=== PATIENT | male | born 1970 | race Caucasian/White ===

== ENCOUNTER 2016-10-28 02:38 | Emergency (ER) | payer MEDICAID ==
[2016-10-28] MEDS ORDERED: ACETAMINOPHEN/CODEINE 300 MG/30 MG TABLET PO STA (04:03)
[2016-10-28] MEDS ORDERED: CLINDAMYCIN 150 MG CAPSULE PO STA (04:03)
[2016-10-28] MEDS ORDERED: CLINDAMYCIN 150 MG CAPSULE PO ONE (04:09)
[2016-10-28] MEDS ORDERED: ACETAMINOPHEN/CODEINE 300 MG/30 MG TABLET PO ONE (04:09)
== END 2016-10-28 04:26 | disposition home or self-care (01) ==
DX: K04.7 Periapical abscess without sinus (principal); F17.200 Nicotine dependence, unspecified, uncomplicated
CPT/HCPCS: 99283; A9270

== ENCOUNTER 2016-11-03 13:29 | Emergency (ER) | payer MEDICAID | END 2016-11-03 14:07 | disposition home or self-care (01) | DX: K04.7 Periapical abscess without sinus (principal); I10 Essential (primary) hypertension; F17.200 Nicotine dependence, unspecified, uncomplicated ==

== ENCOUNTER 2017-07-23 15:59 | Outpatient (CLI) | payer MEDICAID ==
--- NOTE | 2017-07-24 17:09 | MRI Report ---
EXAM: MRI BRAIN WITHOUT CONTRAST EXAM DATE: 07/23/2017 05:03 PM. CLINICAL HISTORY: Memory loss, seizure disorder. COMPARISON: None. TECHNIQUE: Multiplanar, multisequence T1-weighted and fluid-sensitive MR sequences of the brain were performed. Sequences optimized for routine evaluation. Other: None. IV Contrast: None. FINDINGS: The diffusion-weighted images are normal. There is no evidence of acute or subacute cerebral infarcti on. The pituitary and sella are normal. The corpus callosum is of normal size and configuration. The in house cra niocervical junction is normal. The images are degraded by motion. The cerebral vascular flow voids are patent. The T2 axial FLAIR images are normal. There is a subtle punctate focus of suggested susceptibility in the left kaden. This may potentially be artifactual. Otherwise it could reflect a small focus of old blood products from prior microhemorrhage versus a capillary telangiectasia. This cannot be further d ifferentiated on this exam. The optic nerves demonstrate symmetric signal intensity and size. The bilateral hippocampal heads, tia dy, and tail are of symmetric signal intensity and size. The internal architecture is distinct. The c olumns of the fornix are symmetric. The amygdala are symmetric. The bilateral parotid spaces exhibit normal signal intensity. Cerebral volume and ventricular size are normal. IMPRESSION: 1. The images are degraded by motion. Given this limitation, there is no large area of acute or subac [place] cerebral infarction demonstrated. 2. There is no evidence of mesial temporal sclerosis. 3. There is no significant white matter disease. 4. There is no evidence of brain mass. 5. There is a punctate focus of subtle susceptibility suggested in the left kaden on the T2* sequence. It may be artifactual or potentially represent a small focus of old blood products from prior microh emorrhage from trauma versus a capillary telangiectasia. Referring Provider Line: [phone] SITE ID: [id number]
== END 2017-07-23 16:00 | disposition home or self-care (01) ==
LOC: DI 15:59
PROVIDERS: ATTEND Physician Assistant Medical
DX: R41.3 Other amnesia (principal); R56.9 Unspecified convulsions
CPT/HCPCS: 70551

== ENCOUNTER 2017-09-03 12:54 | Outpatient (CLI) | payer MEDICAID | END 2017-09-03 12:55 | disposition home or self-care (01) | LOC: DI 12:54 | PROVIDERS: ATTEND Physician Assistant Medical | DX: R00.0 Tachycardia, unspecified (principal); Z82.49 Family history of ischemic heart disease and other diseases of the circulatory system | CPT/HCPCS: 36415; 80053; 83735; 84443; 84484; 85025; 85379; 93306 ==

== ENCOUNTER 2017-09-03 13:45 | Outpatient (CLI) | payer MEDICAID ==
[2017-09-03 14:02] LABS: BASOPHILS # (AUTO) 0.1 10^3/uL (0.0-0.1); BASOPHILS % (AUTO) 0.9 %; EOSINOPHILS # (AUTO) 0.4 10^3/uL (0.0-0.7); EOSINOPHILS % (AUTO) 5.1 %; HGB - HEMOGLOBIN 14.7 g/dL (14.0-18.0); LYMPHOCYTES # (AUTO) 2.6 10^3/uL (1.5-3.5); MEAN CORPUSCULAR HGB CONC 33.2 g/dL (32.0-36.0); MEAN CORPUSCULAR VOLUME 90.4 fL (80.0-94.0); MEAN PLATELET VOLUME 7.5 fL (7.4-11.4); MONOCYTES # (AUTO) 0.7 10^3/uL (0.0-1.0); MONOCYTES % (AUTO) 9.1 %; NEUTROPHILS # (AUTO) 4.1 10^3/uL (1.5-6.6); NEUTROPHILS % (AUTO) 51.9 %; PLT - PLATELET COUNT 258 10^3/uL (130-450); RED BLOOD COUNT 4.89 10^6/uL (4.70-6.10); RED CELL DISTRIBUTION WIDTH 13.9 % (12.0-15.0); WHITE BLOOD COUNT 7.9 x10^3/uL (4.8-10.8)
[2017-09-03 14:21] LABS: ALBUMIN 4.2 g/dL (3.2-5.5); ALBUMIN/GLOBULIN RATIO 1.5 (1.0-2.2); ALKALINE PHOSPHATASE 51 IU/L (42-121); ALT ALANINE AMINOTRANSFERASE 15 IU/L (10-60); AST ASPARTATE AMINOTRANSFERASE 16 IU/L (10-42); BILIRUBIN,TOTAL 0.5 mg/dL (0.2-1.0); BUN - BLOOD UREA NITROGEN 13 mg/dL (6-20); CARBON DIOXIDE - CO2 27 mmol/L (21-32); CHLORIDE 103 mmol/L (101-111); GFR - MDRD 80 (>89); GLUCOSE 93 mg/dL (70-100); MAGNESIUM 2.2 mg/dL (1.7-2.8); SODIUM 139 mmol/L (135-145)
== END 2017-09-03 13:46 | disposition home or self-care (01) ==
LOC: LAB 13:45
PROVIDERS: ATTEND Physician Assistant Medical
DX: R00.0 Tachycardia, unspecified (principal); Z82.49 Family history of ischemic heart disease and other diseases of the circulatory system
CPT/HCPCS: 36415; 80053; 83735; 84443; 84484; 85025; 85379

== ENCOUNTER 2017-10-04 13:25 | Emergency (ER) | payer MEDICAID ==
[2017-10-04 13:35] VITALS: BP 115/76
[2017-10-04] MEDS ORDERED: BENZOCAINE SPRAY MM STA (13:48)
[2017-10-04] MEDS ORDERED: LIDOCAINE 1%-EPI 1:100000 20 ML MDV SUBQ STA (13:48)
--- NOTE | 2017-10-04 13:50 | ED Physician Documentation ---
PD HPI HEENT - Stated complaint Stated Complaint: SINUS PAIN, SWELLING - Chief complaint Chief Complaint: Heent - History obtained from History obtained from: Patient - History of Present Illness Timing - onset: Other (He developed facial swelling and pain 3 days ago, he started taking amoxicillin 2 days ago and it has not gotten better in fact it has gotten worse. There is no associated fever. He does have nasal congestion. ) Review of Systems Constitutional: denies: Fever, Chills Nose: reports: Rhinorrhea / runny nose, Congestion Throat: denies: Sore throat Cardiac: denies: Chest pain / pressure, Palpitations PD PAST MEDICAL HISTORY - Past Medical History Cardiovascular: None Respiratory: None Neuro: Seizure disorder Endocrine/Autoimmune: None GI: None : None HEENT: None Psych: Anxiety Musculoskeletal: None Derm: None - Past Surgical History Past Surgical History: No - Present Medications Home Medications: Ambulatory Orders Medication Instructions Recorded Confirmed Escitalopram [Lexapro] 10 mg PO DAILY 03/13/15 11/03/16 Acetaminophen/Cod 300/30 [Tylenol 1 - 2 each PO Q6HR PRN #20 tablet 10/28/16 #3] Clindamycin HCl [Clindamycin 300MG 300 mg PO Q6HR #39 capsule 10/28/16 11/03/16 CAP] Clindamycin [Cleocin] 300 mg PO Q6H 10 Days capsule 10/04/17 HYDROmorphone [Dilaudid] 2 mg PO Q4-6H PRN #15 tablet 10/04/17 Ibuprofen [Motrin] 800 mg PO Q8H PRN #30 tablet 10/04/17 - Allergies Allergies/Adverse Reactions: Allergies Allergy/AdvReac Type Severity Reaction Status Date / Time acetaminophen [From Percocet] AdvReac seizure Verified 10/28/16 02:48 hydrocodone AdvReac seizure Verified 10/28/16 02:47 oxycodone HCl * AdvReac seizure Verified 10/28/16 02:48 [From Percocet] - Social History Does the pt smoke?: Yes Smoking Status: Current every day smoker Does the pt drink ETOH?: Yes Does the pt have substance abuse?: No - Immunizations Immunizations are current?: Yes PD ED PE NORMAL - Vitals Vital signs reviewed: Yes - General General: Alert and oriented X 3, No acute distress - HEENT HEENT: Other (There is a large pointed abscess on the upper gingiva near the second premolar with some tenderness and reactive facial swelling over that. No trismus.) - Neck Neck: Supple, no meningeal sign, No bony TTP - Neuro Neuro: Alert and oriented X 3, Normal speech Results - Vitals Vitals: Vital Signs - 24 hr 10/04/17 13:33 Temperature 36.6 C Heart Rate 73 Respiratory 18 Rate Blood Pressure 115/76 O2 Saturation 99 Oxygen O2 Source Room air Procedures - Abscess I&D (location) Dental, L maxillary Preparation: Other (Topical benzocaine followed by infraorbital nerve block with lido with epi, intraoral approach.) Incision: Incised with scalpel, Purulent drainage, Loculations broken Other: Pt tolerated well, Antibiotic prescribed Departure - Departure Disposition: 01 Home, Self Care Clinical Impression: Dental infection Condition: Good Record reviewed to determine appropriate education?: Yes Instructions: ED Tooth Pain Prescriptions: Clindamycin [Cleocin] 300 mg PO Q6H 10 Days capsule HYDROmorphone [Dilaudid] 2 mg PO Q4-6H PRN #15 tablet PRN Reason: Pain Ibuprofen [Motrin] 800 mg PO Q8H PRN #30 tablet PRN Reason: PAIN &/OR FEVER Comments: It is very important that she follow-up with a dentist. When it comes to dental problems like yours, the emergency department can only offer a short- term solution to your long-term problem. A couple of low cost options for dental care include: [facility] in [place], calls [phone] for an appointment Or [facility] [facility] in [place], call [phone] for an appointment. Or [facility] in [place] [phone]
== END 2017-10-04 14:29 | disposition home or self-care (01) ==
LOC: ED 13:25
DX: K04.7 Periapical abscess without sinus (principal); F17.200 Nicotine dependence, unspecified, uncomplicated
CPT/HCPCS: 41800; 99283; A9270

== ENCOUNTER 2018-08-27 10:57 | Emergency (ER) | payer MEDICAID ==
[2018-08-27] MEDS ORDERED: DEXAMETHASONE 10 MG/ML VIAL PO STA (13:43)
--- NOTE | 2018-08-27 13:46 | ED Physician Documentation ---
PD HPI BACK PAIN - Stated complaint Stated Complaint: LOWER BACK PAIN - Chief complaint Chief Complaint: Back Pain - History obtained from History obtained from: Patient - History of Present Illness Timing - onset: How many days ago (3) Timing - duration: Days (3) Timing - details: Gradual onset, Still present Location: Lower, Right, Left Quality: Pain, Spasm, Sharp, Similar to prior episodes Associated symptoms: No: Fever, Weakness, Numbness, Incontinent of urine, Unable to urinate, Hematuria, Incontinent of stool Improves with: Rest, Position Worsened by: Movement, Twisting, Palpation Similar symptoms before: Diagnosis (lumbar strain and UTI) Recently seen: Not recently seen - Additional information Additional information: 47-year-old male has developed pain in his lower back that radiates down his left leg to the knee. He denies any fever or nausea denies any urinary urgency frequency or dysuria. He did have some foul-smelling urine last week he drank extra fluids that resolved. Review of Systems Constitutional: denies: Fever, Chills, Myalgias, Fatigue Eyes: denies: Decreased vision Ears: denies: Ear pain Nose: denies: Congestion Throat: denies: Sore throat Cardiac: denies: Chest pain / pressure Respiratory: denies: Dyspnea, Cough GI: denies: Abdominal Pain, Nausea, Vomiting, Constipation, Diarrhea : denies: Dysuria, Frequency Skin: denies: Rash Musculoskeletal: reports: Back pain, Extremity pain. denies: Neck pain Neurologic: denies: Generalized weakness, Focal weakness, Numbness PD PAST MEDICAL HISTORY - Past Medical History Cardiovascular: None Respiratory: None Endocrine/Autoimmune: None GI: None : None HEENT: None Psych: Anxiety Musculoskeletal: None Derm: None - Past Surgical History Past Surgical History: No - Present Medications Home Medications: Ambulatory Orders Medication Instructions Recorded Confirmed Quetiapine Fumarate [Quetiapine 75 mg PO DAILY 08/27/18 08/27/18 Fumarate ER] tiZANidine [Zanaflex] 4 mg PO Q8H PRN #20 tablet 08/27/18 traMADol [Ultram] 50 - 100 mg PO Q6H PRN #20 tablet 08/27/18 - Allergies Allergies/Adverse Reactions: Allergies Allergy/AdvReac Type Severity Reaction Status Date / Time acetaminophen [From Percocet] AdvReac seizure Verified 08/27/18 11:02 hydrocodone AdvReac seizure Verified 08/27/18 11:02 oxycodone HCl * AdvReac seizure Verified 08/27/18 11:02 [From Percocet] - Social History Does the pt smoke?: Yes Smoking Status: Current every day smoker Does the pt drink ETOH?: Yes Does the pt have substance abuse?: No - Immunizations Immunizations are current?: Yes PD ED PE NORMAL - Vitals Vital signs reviewed: Yes (hypertensive ) - General General: Alert and oriented X 3, No acute distress, Well developed/nourished - HEENT HEENT: Atraumatic, PERRL, EOMI - Respiratory Respiratory: No respiratory distress - Back Back: No CVA TTP, No spinal TTP, Other (There is paraspinous muscle tenderness to the lower lumbar paraspinous muscles and not the the CVA. The pain extends into the sciatic notch on the left side. ) - Derm Derm: Normal color, Warm and dry, No rash - Extremities Extremities: No deformity, No edema - Neuro Neuro: Alert and oriented X 3, last code striper 2-12 intact, No motor deficit, No sensory deficit, Normal speech Eye Opening: Spontaneous Motor: Obeys Commands Verbal: Oriented GCS Score: 15 - Psych Psych: Normal mood, Normal affect Results - Vitals Vitals: Vital Signs - 24 hr 08/27/18 11:00 Temperature 36.8 C Heart Rate 90 Respiratory 18 Rate Blood Pressure 146/93 H O2 Saturation 100 Oxygen O2 Source Room air PD MEDICAL DECISION MAKING - ED course Complexity details: reviewed old records, considered differential, d/w patient ED course: 47-year-old male has lower lumbar pain radiating to the left sciatic notch and down the left leg. He is administered dexamethasone 10 mg orally and will place him on some pain medication and muscle relaxant. He has had problems previously with hydrocodone and oxycodone but does state that he cannot tolerate tramadol. Departure - Departure Disposition: 01 Home, Self Care Clinical Impression: Sciatica Qualifiers: Laterality: left Qualified Code(s): M54.32 - Sciatica, left side Condition: Stable Instructions: ED Sciatica Follow-Up: [facility] [Provider Group] Prescriptions: tiZANidine [Zanaflex] 4 mg PO Q8H PRN #20 tablet PRN Reason: back spasm traMADol [Ultram] 50 - 100 mg PO Q6H PRN #20 tablet PRN Reason: Pain
[2018-08-27 13:59] VITALS: BP 146/90
== END 2018-08-27 13:58 | disposition home or self-care (01) ==
LOC: ED 10:57
DX: M54.32 Sciatica, left side (principal); F17.200 Nicotine dependence, unspecified, uncomplicated
CPT/HCPCS: 99283

== ENCOUNTER 2018-09-15 10:46 | Emergency (ER) | payer MEDICAID ==
--- NOTE | 2018-09-15 13:29 | ED Physician Documentation ---
History of Present Illness - Stated complaint Stated Complaint: GLF/HEAD INJURY - Chief complaint Chief Complaint: General - History obtained from History obtained from: Patient - History of Present Illness Timing: Yesterday (He slipped and fell yesterday hitting the back of his head on rocks. There was no loss of consciousness. He had a gradual onset global headache overnight associated with right hand pain and tingling. No loss of consciousness, no vomiting.) Review of Systems Constitutional: denies: Fever, Chills Eyes: denies: Loss of vision, Decreased vision Ears: denies: Loss of hearing, Ear pain Nose: denies: Rhinorrhea / runny nose, Congestion PD PAST MEDICAL HISTORY - Past Medical History Cardiovascular: None Respiratory: None Endocrine/Autoimmune: None GI: None : None HEENT: None Psych: Anxiety Musculoskeletal: None Derm: None - Past Surgical History Past Surgical History: No - Present Medications Home Medications: Ambulatory Orders Medication Instructions Recorded Confirmed Quetiapine Fumarate [Quetiapine 75 mg PO DAILY 08/27/18 08/27/18 Fumarate ER] tiZANidine [Zanaflex] 4 mg PO Q8H PRN #20 tablet 08/27/18 traMADol [Ultram] 50 - 100 mg PO Q6H PRN #20 tablet 08/27/18 oxyCODONE [Roxicodone] 5 mg PO Q4-6H PRN #10 tablet 09/15/18 - Allergies Allergies/Adverse Reactions: Allergies Allergy/AdvReac Type Severity Reaction Status Date / Time aspirin Allergy Unknown Verified 09/15/18 11:18 acetaminophen [From Percocet] AdvReac seizure Verified 09/15/18 11:18 hydrocodone AdvReac seizure Verified 09/15/18 11:18 oxycodone HCl * AdvReac seizure Verified 09/15/18 11:18 [From Percocet] - Social History Does the pt smoke?: Yes Smoking Status: Current every day smoker Does the pt drink ETOH?: Yes Does the pt have substance abuse?: No - Immunizations Immunizations are current?: Yes - POLST Patient has POLST: No PD ED PE NORMAL - Vitals Vital signs reviewed: Yes - General General: Alert and oriented X 3, No acute distress - HEENT HEENT: PERRL, EOMI - Neck Neck: Supple, no meningeal sign, Other (Mild diffuse cervical spine tenderness) - Derm Derm: Normal color, Warm and dry, No rash - Extremities Extremities: No edema, No calf tenderness / cord, Other (Mild tenderness of the right fifth metacarpal without deformity or limited range of motion. He has normal bilateral claims correspondence clerk strength, thumb extension, and interosseous strength. He has mildly diminished/tingling sensation in a right C6 distribution.) - Neuro Neuro: Alert and oriented X 3, Normal speech - Psych Psych: Normal mood, Normal affect Results - Vitals Vitals: Vital Signs - 24 hr 09/15/18 09/15/18 09/15/18 11:13 12:54 13:25 Temperature 36.8 C 36.9 C Heart Rate 99 81 90 Respiratory 16 18 14 Rate Blood Pressure 129/86 H 116/83 H 130/86 H O2 Saturation 100 100 100 Oxygen O2 Source Room air - Rads (name of study) CT Head/Cspine, and XR R hand Radiology: EMP read contemporaneously (NAD, DDD in the C spine) PD MEDICAL DECISION MAKING - ED course ED course: 47-year-old gentleman status post head injury yesterday with headache and right arm tingling today. The right arm tingling seems most like a cervical radiculopathy, the findings are pretty mild and he has no C-spine tenderness. Imaging shows no severe injuries. He has full range of motion of the neck. Conservative care was advised. He requested tramadol for pain. He has a history of epilepsy and I did not think that was a good choice. We settled on plain oxycodone, it sounds like the listed allergy to Percocet was from the acetaminophen. Departure - Departure Disposition: 01 Home, Self Care Clinical Impression: Head injury Qualifiers: Encounter type: initial encounter Qualified Code(s): S09.90XA - Unspecified injury of head, initial encounter Neck sprain Qualifiers: Encounter type: initial encounter Qualified Code(s): S13.9XXA - Sprain of joints and ligaments of unspecified parts of neck, initial encounter Contusion, hand Qualifiers: Encounter type: initial encounter Laterality: right Qualified Code(s): S60.221A - Contusion of right hand, initial encounter Condition: Good Record reviewed to determine appropriate education?: Yes Instructions: ED Head Injury Closed Prescriptions: oxyCODONE [Roxicodone] 5 mg PO Q4-6H PRN #10 tablet PRN Reason: Pain Comments: Call your doctor to arrange a follow-up appointment, make the next available appointment. In the interim, return anytime if worse or if new symptoms develop. Do not drink or drive while taking narcotic pain medication. Note that many narcotic pain relievers also contain Tylenol/acetaminophen. Please ensure that your total dose of acetaminophen from all sources does not exceed 3 g (3000 mg) per day. You may get constipated while on this medication. Take a stool softener such as Colace twice a day while you are on it. Also add an itah-pho-nueeywr laxative such as senna or MiraLAX on any day that you do not have a bowel movement. If you received a narcotic pain medication or sedative while in the emergency department, do not drive for the next 24 hours. Your blood pressure was elevated today on check into the emergency department. This does not mean that you have hypertension, it is a common phenomenon to come to the emergency department and have elevated blood pressure. I recommend that you see your primary care physician within the week to have it rechecked when you are feeling better.
[2018-09-15 13:30] VITALS: BP 130/86
--- NOTE | 2018-09-15 14:05 | XRAY Report ---
Reason: head inj, R hand pain/numb Procedure Date: 09/15/2018 Accession Number: [id number] / [id number] Procedure: XR - Hand 3 View RT CPT Code: FULL RESULT: EXAM: RIGHT HAND RADIOGRAPHY EXAM DATE: 09/15/2018 01:54 PM. CLINICAL HISTORY: Head inj, R hand pain/numb. COMPARISON: HAND 3 VIEW LT 03/13/2015 4:23 AM. TECHNIQUE: 3 views. FINDINGS: Bones: Normal. No fractures or bone lesions. Joints: Normal. No subluxations. Soft Tissues: Unremarkable. IMPRESSION: Normal hand radiography. RADIA
--- NOTE | 2018-09-15 14:06 | CT Report ---
Reason: head inj, R hand pain/numb Procedure Date: 09/15/2018 Accession Number: [id number] / [id number] Procedure: CT - CERVICAL SPINE WO CPT Code: FULL RESULT: EXAM: CT CERVICAL SPINE WITHOUT CONTRAST DATE: 09/15/2018 01:39 PM. HISTORY: Head inj, R hand pain/numb. COMPARISONS: None. TECHNIQUE: Thin-section axial images were acquired of the cervical spine without contrast. Post-processing: Coronal and sagittal reformats. Other: None. In accordance with CT protocol optimization, one or more of the following dose reduction techniques were utilized for this exam: automated exposure control, adjustment of mA and/or KV based on patient size, or use of iterative reconstructive technique. FINDINGS: Alignment: No scoliosis or spondylolisthesis. Bones: No fracture or bone lesion. Interspace Levels/Facets: C1-C2: Unremarkable. C2-C3: Unremarkable. C3-C4: Unremarkable. C4-C5: Unremarkable. C5-C6: Osteophyte C6-C7: Osteophyte, uncovertebral osteophyte C7-T1: Unremarkable. Musculature: Normal. No fatty atrophy. Other: The paravertebral and prevertebral soft tissues are unremarkable. Biapical scarring IMPRESSION: Mild DJD RADIA
--- NOTE | 2018-09-15 14:07 | CT Report ---
Reason: head inj, R hand pain/numb Procedure Date: 09/15/2018 Accession Number: [id number] / [id number] Procedure: CT - HEAD WO CPT Code: FULL RESULT: EXAM: CT HEAD EXAM DATE: 09/15/2018 01:39 PM. CLINICAL HISTORY: Trauma, pain. COMPARISON: BRAIN W/O 07/23/2017 4:11 PM. TECHNIQUE: Multiaxial CT images were obtained from the foramen magnum to the vertex. Reformats: Sagittal and coronal. IV contrast: None. In accordance with CT protocol optimization, one or more of the following dose reduction techniques were utilized for this exam: automated exposure control, adjustment of mA and/or KV based on patient size, or use of iterative reconstructive technique. FINDINGS: Parenchyma: No intraparenchymal hemorrhage. No evidence of mass, midline shift, or CT findings of infarction. Lyons-white differentiation is distinct. Extraaxial Spaces: Normal for age. No subdural or epidural collections. Ventricles: Normal in size and position. Sinuses and Orbits: Imaged paranasal sinuses, orbits, and mastoids show no significant abnormality. Bones: Unremarkable. Other: None. IMPRESSION: Normal head CT. RADIA
== END 2018-09-15 14:24 | disposition home or self-care (01) ==
LOC: ED 10:46
DX: S09.90XA Unspecified injury of head, initial encounter (principal); S13.9XXA Sprain of joints and ligaments of unspecified parts of neck, initial encounter; S60.221A Contusion of right hand, initial encounter; W01.198A Fall on same level from slipping, tripping and stumbling with subsequent striking against other object, initial encounter; R03.0 Elevated blood-pressure reading, without diagnosis of hypertension; F17.200 Nicotine dependence, unspecified, uncomplicated
CPT/HCPCS: 70450; 72125; 99283

== ENCOUNTER 2019-04-13 10:41 | Outpatient (CLI) | payer MEDICAID ==
--- NOTE | 2019-04-13 13:41 | XRAY Report ---
Reason: CERVICAL SPINAL STENOSIS, HAND NUMBNESS Procedure Date: 04/13/2019 Accession Number: [id number] / [id number] Procedure: XRN - Cervical Spine 2 View CPT Code: FULL RESULT: EXAM: CERVICAL SPINE RADIOGRAPHY EXAM DATE: 04/13/2019 10:54 AM. CLINICAL HISTORY: CERVICAL SPINAL STENOSIS, HAND NUMBNESS. COMPARISONS: CT cervical spine 09/15/2018. TECHNIQUE: 3 views. FINDINGS: Alignment: Normal lordosis. No spondylolisthesis or scoliosis. Bones: The cervical vertebral bodies and posterior elements are well visualized from the skull base through C7-T1. No fractures or bone lesions. Disks: No significant disk height narrowing or subluxation. There are small anterior inferior bone spurs of C4, C5, and C6, without disk height narrowing. Facets: No visible facet arthropathy. Soft Tissues: Normal. No prevertebral soft tissue swelling. The visualized lung apices are clear. IMPRESSION: 1. Mild multilevel anterior spondylosis without disk height narrowing. 2. Otherwise negative examination. RADIA
== END 2019-04-13 10:42 | disposition home or self-care (01) ==
LOC: DI.N 10:41
PROVIDERS: ATTEND Nurse Practitioner
DX: M47.812 Spondylosis without myelopathy or radiculopathy, cervical region (principal)
CPT/HCPCS: 72040

== ENCOUNTER 2019-06-22 12:26 | Emergency (ER) | payer MEDICAID ==
[2019-06-22 12:32] VITALS: BP 148/93
--- NOTE | 2019-06-22 12:56 | ED Physician Documentation ---
PD HPI URI - Stated complaint Stated Complaint: SOA - Chief complaint Chief Complaint: Resp - History obtained from History obtained from: Patient - History of Present Illness Timing - onset: Other (Sick for a week with a biphasic illness with a cough productive of yellow sputum, some shortness of breath especially at night. There is no fever. He denies sore throat. He was getting better but got worse again yesterday. He has trouble taking a deep breath. There is no chest pain. No pedal edema. No recent travel.) Review of Systems Constitutional: reports: Fatigue. denies: Fever, Chills Nose: denies: Rhinorrhea / runny nose Throat: denies: Sore throat Cardiac: denies: Chest pain / pressure Respiratory: reports: Dyspnea, Cough PD PAST MEDICAL HISTORY - Past Medical History Cardiovascular: None Respiratory: None Endocrine/Autoimmune: None GI: None : None HEENT: None Psych: Anxiety Musculoskeletal: None Derm: None - Past Surgical History Past Surgical History: No - Present Medications Home Medications: Ambulatory Orders Medication Instructions Recorded Confirmed Quetiapine Fumarate [Quetiapine 75 mg PO DAILY 08/27/18 08/27/18 Fumarate ER] tiZANidine [Zanaflex] 4 mg PO Q8H PRN #20 tablet 08/27/18 traMADol [Ultram] 50 - 100 mg PO Q6H PRN #20 tablet 08/27/18 oxyCODONE [Roxicodone] 5 mg PO Q4-6H PRN #10 tablet 09/15/18 Albuterol Sulf [Ventolin Hfa 1 - 2 puffs INH Q4HR PRN #1 inhaler 06/22/19 Inhaler] Azithromycin [Zithromax] 1 tab PO DAILY #6 tablet 06/22/19 Benzonatate [Tessalon Perle] 100 - 200 mg PO TID PRN #30 capsule 06/22/19 - Allergies Allergies/Adverse Reactions: Allergies Allergy/AdvReac Type Severity Reaction Status Date / Time aspirin Allergy Unknown Verified 09/15/18 11:18 acetaminophen [From Percocet] AdvReac seizure Verified 09/15/18 11:18 hydrocodone AdvReac seizure Verified 09/15/18 11:18 oxycodone HCl * AdvReac seizure Verified 09/15/18 11:18 [From Percocet] - Social History Does the pt smoke?: Yes Smoking Status: Current every day smoker Does the pt drink ETOH?: Yes Does the pt have substance abuse?: No - Immunizations Immunizations are current?: Yes - POLST Patient has POLST: No PD ED PE NORMAL - Vitals Vital signs reviewed: Yes - General General: Alert and oriented X 3, No acute distress - HEENT HEENT: PERRL, EOMI - Neck Neck: Supple, no meningeal sign, No bony TTP - Cardiac Cardiac: RRR, No murmur - Respiratory Respiratory: Other (Mildly rhonchorous throughout without focal findings, no obvious respiratory distress.) - Abdomen Abdomen: Non tender - Back Back: No CVA TTP, No spinal TTP - Derm Derm: Normal color, Warm and dry - Neuro Neuro: Alert and oriented X 3, Normal speech Results - Vitals Vitals: Vital Signs - 24 hr 06/22/19 12:28 Temperature 36.5 C Heart Rate 80 Respiratory 18 Rate Blood Pressure 148/93 H O2 Saturation 96 Oxygen O2 Source Room air PD MEDICAL DECISION MAKING - ED course ED course: 48-year-old gentleman with ongoing tobacco use presents with a biphasic illness, may have early COPD and is treated for same, steroids are held given underlying psychiatric disorder. Departure - Departure Disposition: 01 Home, Self Care Clinical Impression: Bronchitis Condition: Good Record reviewed to determine appropriate education?: Yes Instructions: ED Bronchitis Asthmatic Prescriptions: Albuterol Sulf [Ventolin Hfa Inhaler] 1 - 2 puffs INH Q4HR PRN #1 inhaler PRN Reason: Shortness Of Air/Wheezing Azithromycin [Zithromax] 1 tab PO DAILY #6 tablet Benzonatate [Tessalon Perle] 100 - 200 mg PO TID PRN #30 capsule PRN Reason: Cough Comments: Return for new or worsening symptoms. Follow-up with your doctor in a week if not better. Discharge Date/Time: 06/22/19 12:58
== END 2019-06-22 12:58 | disposition home or self-care (01) ==
LOC: ED 12:26
DX: J40 Bronchitis, not specified as acute or chronic (principal); F17.200 Nicotine dependence, unspecified, uncomplicated
CPT/HCPCS: 99283; 99284

== ENCOUNTER 2019-07-24 14:45 | Outpatient (CLI) | payer MEDICAID ==
[2019-07-24 15:05] LABS: BASOPHILS # (AUTO) 0.1 10^3/uL (0.0-0.1); BASOPHILS % (AUTO) 0.8 %; EOSINOPHILS # (AUTO) 0.2 10^3/uL (0.0-0.7); EOSINOPHILS % (AUTO) 3.3 %; HGB - HEMOGLOBIN 14.8 g/dL (14.0-18.0); LYMPHOCYTES # (AUTO) 2.2 10^3/uL (1.5-3.5); LYMPHOCYTES % (AUTO) 35.4 %; MEAN CORPUSCULAR HEMOGLOBIN 30.4 pg (27.0-31.0); MEAN CORPUSCULAR HGB CONC 32.6 g/dL (32.0-36.0); MEAN CORPUSCULAR VOLUME 93.2 fL (80.0-94.0); MEAN PLATELET VOLUME 9.3 fL (7.4-11.4); MONOCYTES # (AUTO) 0.6 10^3/uL (0.0-1.0); MONOCYTES % (AUTO) 9.5 %; NEUTROPHILS # (AUTO) 3.2 10^3/uL (1.5-6.6); NEUTROPHILS % (AUTO) 50.5 %; PLT - PLATELET COUNT 244 10^3/uL (130-450); RED BLOOD COUNT 4.87 10^6/uL (4.70-6.10); RED CELL DISTRIBUTION WIDTH 13.3 % (12.0-15.0); WHITE BLOOD COUNT 6.3 x10^3/uL (4.8-10.8)
[2019-07-24 15:15] LABS: ALBUMIN 4.6 g/dL (3.2-5.5); ALBUMIN/GLOBULIN RATIO 1.6 (1.0-2.2); BILIRUBIN,TOTAL 0.6 mg/dL (0.2-1.0); CALCIUM 9.2 mg/dL (8.5-10.3); CREATININE 0.9 mg/dL (0.6-1.2); MAGNESIUM 2.1 mg/dL (1.7-2.8); TOTAL PROTEIN 7.4 g/dL (6.7-8.2)
== END 2019-07-24 14:46 | disposition home or self-care (01) ==
LOC: LAB 14:45
PROVIDERS: ATTEND Nurse Practitioner
DX: Z79.899 Other long term (current) drug therapy (principal); G25.81 Restless legs syndrome
CPT/HCPCS: 36415; 80053; 83735; 84153; 85025

== ENCOUNTER 2020-03-24 09:42 | Outpatient (CLI) | payer MEDICAID ==
--- NOTE | 2020-03-24 15:42 | MRI Report ---
PROCEDURE: Lumbar Spine W/O INDICATIONS: LUMBAGO W/SCIATICA RT SIDE TECHNIQUE: Noncontrast sagittal T1 spin echo and T2 fast echo, sagittal STIR, axial T1 and T2 fast spin echo thr ough the lumbar spine. In cases with scoliosis, additional coronal T2 fast spin echo may be performe d. COMPARISON: None. FINDINGS: Image quality: Excellent. Alignment and Curvature: There is normal bony alignment. Bone Marrow: Marrow is of normal overall signal. No acute vertebral body compression fractures. Spinal Cord: Conus medullaris terminates at the normal level. Visualized cord demonstrates normal s ignal and size. Regional Soft Tissues: Prevertebral and paraspinous soft tissues are within normal limits. T12-L1: Normal in appearance. L1-L2: Normal in appearance. L2-L3: Normal in appearance. L3-L4: Normal in appearance. L4-L5: Disc desiccation and disc height loss with diffuse disc bulge flattening the ventral thecal sac. No mass effect upon the traversing L5 nerve roots. Foraminal components of the disc bulge combin ed with facet hypertrophy to produce mild bilateral neural foraminal stenosis. L5-S1: Disc desiccation and disc height loss with circumferential disc bulge and a superimposed bro ad-based posterior disc protrusion. Disc material does not displace the descending S1 nerve roots wit hin either subarticular zone. Foraminal components of the disc bulge combined with facet hypertrophy and neural foraminal height loss to produce moderate bilateral neural foraminal stenosis. Disc mater ial abuts the exiting L5 nerve roots bilaterally. IMPRESSION: Degenerative changes at L4-L5 and L5-S1. Correlate for any corresponding radicular symptoms. Reviewed by: Celso Yanes MD on 03/24/2020 3:41 PM PDT Approved by: Celso Yanes MD on 03/24/2020 3:41 PM PDT Station ID: [id number]
== END 2020-03-24 09:43 | disposition home or self-care (01) ==
LOC: DI 09:42
PROVIDERS: ATTEND Nurse Practitioner
DX: M51.36 Other intervertebral disc degeneration, lumbar region (principal); M48.061 Spinal stenosis, lumbar region without neurogenic claudication; M51.37 Other intervertebral disc degeneration, lumbosacral region; M48.07 Spinal stenosis, lumbosacral region; M51.27 Other intervertebral disc displacement, lumbosacral region
CPT/HCPCS: 72148

== ENCOUNTER 2020-03-25 20:29 | Emergency (ER) | payer MEDICAID ==
[2020-03-25] MEDS ORDERED: oxyCODONE 5 MG TABLET PO STA (21:13)
[2020-03-25] MEDS ORDERED: CLINDAMYCIN 150 MG CAPSULE PO STA (21:13)
--- NOTE | 2020-03-25 21:18 | ED Physician Documentation ---
PD HPI HEENT - Stated complaint Stated Complaint: TOOTH & HIP PX - Chief complaint Chief Complaint: Heent - History obtained from History obtained from: Patient - Additional information Additional information: Right Sided tooth pain and swelling of the face. No fevers. Is been going on for about a week. Also notes sciatica and had an MRI done yesterday. Review of Systems Constitutional: denies: Fever, Chills Cardiac: reports: Reviewed and negative Respiratory: reports: Reviewed and negative PD PAST MEDICAL HISTORY - Past Medical History Past Medical History: Yes Cardiovascular: None Respiratory: None Neuro: Seizure disorder Endocrine/Autoimmune: None GI: None : None HEENT: None Psych: Anxiety Musculoskeletal: None Derm: None - Past Surgical History Past Surgical History: No - Present Medications Home Medications: Ambulatory Orders Medication Instructions Recorded Confirmed Quetiapine Fumarate [Quetiapine 75 mg PO DAILY 08/27/18 08/27/18 Fumarate ER] tiZANidine [Zanaflex] 4 mg PO Q8H PRN #20 tablet 08/27/18 traMADol [Ultram] 50 - 100 mg PO Q6H PRN #20 tablet 08/27/18 oxyCODONE [Roxicodone] 5 mg PO Q4-6H PRN #10 tablet 09/15/18 Albuterol Sulf [Ventolin Hfa 1 - 2 puffs INH Q4HR PRN #1 inhaler 06/22/19 Inhaler] Azithromycin [Zithromax] 1 tab PO DAILY #6 tablet 06/22/19 Benzonatate [Tessalon Perle] 100 - 200 mg PO TID PRN #30 capsule 06/22/19 Penicillin V Potassium 500 mg PO Q6HR #40 tablet 02/15/20 Tramadol HCl 50 - 100 mg PO Q6H PRN #20 tablet 02/15/20 Clindamycin HCl [Clindamycin 300MG 300 mg PO Q6H #40 capsule 03/25/20 CAP] Morphine Ir [Ms Ir] 15 mg PO Q6H PRN #15 tablet 03/25/20 - Allergies Allergies/Adverse Reactions: Allergies Allergy/AdvReac Type Severity Reaction Status Date / Time aspirin Allergy Unknown Verified 02/15/20 10:45 acetaminophen [From Percocet] AdvReac seizure Verified 02/15/20 10:45 hydrocodone AdvReac seizure Verified 02/15/20 10:45 oxycodone HCl * AdvReac seizure Verified 02/15/20 10:45 [From Percocet] - Social History Does the pt smoke?: Yes Smoking Status: Current every day smoker Does the pt drink ETOH?: Yes ETOH Use: Wine Does the pt have substance abuse?: No - Immunizations Immunizations are current?: Yes - POLST Patient has POLST: No PD ED PE NORMAL - Vitals Vital signs reviewed: Yes - General General: Alert and oriented X 3, No acute distress - HEENT HEENT: Other (Generally poor dentition, mild amount of trismus, large cavities with reactive gingival swelling on the gumline posterior right. No sublingual edema or elevation of the tongue.) - Neck Neck: Supple, no meningeal sign, No bony TTP - Extremities Extremities: No deformity, No tenderness to palpate, Normal ROM s pain, No edema - Neuro Neuro: Alert and oriented X 3, No motor deficit, No sensory deficit, Normal speech Results - Vitals Vitals: Vital Signs - 24 hr 03/25/20 03/25/20 20:30 21:42 Temperature 36.8 C 37.3 C Heart Rate 96 80 Respiratory 16 18 Rate Blood Pressure 153/108 H 165/116 H O2 Saturation 97 98 Oxygen O2 Source Room air Procedures - General procedure General procedure: After an inferior alveolar block with actually pretty good anesthesia a stab incision was made in the most fluctuant portion of the gumline without return of pus. PD MEDICAL DECISION MAKING - ED course ED course: 49-year-old gentleman presents with pain from sciatica, MRI from yesterday was reviewed. Also a dental abscess with facial cellulitis but no current evidence of Doni's angina. A stab incision was made in the gumline, no pus was Returned. He was administered oxycodone here. Later he noted an allergy to same and was thusly given a prescription for morphine which he says he can take. Departure - Departure Disposition: 01 Home, Self Care Clinical Impression: Pain due to dental caries, Dental infection Sciatica Qualifiers: Laterality: right Qualified Code(s): M54.31 - Sciatica, right side Condition: Good Record reviewed to determine appropriate education?: Yes Instructions: Prone Multifidus Activation, ED Dental Abscess Facial Cellulitis, ED Sciatica Prescriptions: Clindamycin HCl [Clindamycin 300MG CAP] 300 mg PO Q6H #40 capsule Morphine Ir [Ms Ir] 15 mg PO Q6H PRN #15 tablet PRN Reason: Pain Comments: Come back if worse. Otherwise to follow-up with your dentist on Saturday. Also your primary care physician to discuss physical therapy. Discharge Date/Time: 03/25/20 21:43
[2020-03-25 21:43] VITALS: BP 165/116
== END 2020-03-25 21:43 | disposition home or self-care (01) ==
LOC: ED 20:29
DX: K04.7 Periapical abscess without sinus (principal); K02.9 Dental caries, unspecified; M54.31 Sciatica, right side; F17.200 Nicotine dependence, unspecified, uncomplicated
CPT/HCPCS: 41800; 99282; 99284; A9270

== ENCOUNTER 2020-09-21 06:44 | Emergency (ER) | payer MEDICAID ==
[2020-09-21 06:56] VITALS: BP 167/113
--- NOTE | 2020-09-21 08:03 | ED Physician Documentation ---
PD HPI HEENT - Stated complaint Stated Complaint: TOOTH PX - Chief complaint Chief Complaint: Heent - History obtained from History obtained from: Patient - History of Present Illness Timing - onset: How many days ago (3-4) Timing - duration: Days (3-4) Timing - details: Gradual onset, Still present Location: Tooth (right lower molar) Worsens: Temperatures, Other (chewing and palpation) Associated symptoms: No: Fever, Congestion, Cough Similar symptoms before: Diagnosis (dental infections) Recently seen: Not recently seen (tried to get appt but not for couple weeks.) Review of Systems Constitutional: denies: Fever, Chills Nose: denies: Rhinorrhea / runny nose, Congestion Throat: denies: Sore throat Respiratory: denies: Cough GI: denies: Nausea, Vomiting Skin: denies: Rash, Lesions PD PAST MEDICAL HISTORY - Past Medical History Past Medical History: Yes Cardiovascular: None Respiratory: None Neuro: Seizure disorder Endocrine/Autoimmune: None GI: None : None HEENT: None Psych: Anxiety Musculoskeletal: None Derm: None - Past Surgical History Past Surgical History: No - Present Medications Home Medications: Ambulatory Orders Medication Instructions Recorded Confirmed Quetiapine Fumarate [Quetiapine 75 mg PO DAILY 08/27/18 08/27/18 Fumarate ER] Clindamycin [Cleocin] 300 mg PO TID 5 Days #15 cap 09/21/20 Morphine Ir [Ms Ir] 15 mg PO Q8H PRN #15 tablet 09/21/20 - Allergies Allergies/Adverse Reactions: Allergies Allergy/AdvReac Type Severity Reaction Status Date / Time aspirin Allergy Unknown Verified 02/15/20 10:45 acetaminophen [From Percocet] AdvReac seizure Verified 02/15/20 10:45 hydrocodone AdvReac seizure Verified 02/15/20 10:45 oxycodone HCl * AdvReac seizure Verified 02/15/20 10:45 [From Percocet] - Social History Does the pt smoke?: Yes Smoking Status: Current every day smoker Does the pt drink ETOH?: Yes Does the pt have substance abuse?: No - Immunizations Immunizations are current?: Yes - POLST Patient has POLST: No PD ED PE NORMAL - Vitals Vital signs reviewed: Yes - General General: Alert and oriented X 3, Well developed/nourished, Other (appears uncomfortable) - HEENT HEENT: Pharynx benign. No: Dentition benign (caries, particularly right lower molar, with some gum swelling and tender. No fluctuance. ) - Neck Neck: Supple, no meningeal sign, No adenopathy - Cardiac Cardiac: RRR, No murmur - Respiratory Respiratory: Clear bilaterally - Derm Derm: Normal color, Warm and dry, No rash - Neuro Neuro: Alert and oriented X 3, No motor deficit, Normal speech Results - Vitals Vitals: Vital Signs - 24 hr 09/21/20 06:50 Temperature 36.3 C L Heart Rate 94 Respiratory 18 Rate Blood Pressure 167/113 H O2 Saturation 98 Oxygen O2 Source Room air PD MEDICAL DECISION MAKING - ED course Complexity details: reviewed old records (not regular med rxs. Has dental appt soonest available. ), considered differential, d/w patient Departure - Departure Disposition: 01 Home, Self Care Clinical Impression: Pain, dental Condition: Stable Record reviewed to determine appropriate education?: Yes Instructions: ED Tooth Pain Prescriptions: Clindamycin [Cleocin] 300 mg PO TID 5 Days #15 cap Morphine Ir [Ms Ir] 15 mg PO Q8H PRN #15 tablet PRN Reason: Pain Comments: Continue an anti-inflammatory such as ibuprofen 400 to 600 mg 3 times a day. Take it with food. Add Tylenol or morphine if needed for pain or worse pain. Clindamycin 3 times a day for 5 days. I would anticipate improvement in your pain as its likely being caused by inflammation and early infection. Follow-up with a dentist as planned and call them to see if they have a sooner appointment. Discharge Date/Time: 09/21/20 08:33
[2020-09-21] MEDS ORDERED: MORPHINE IR 15 MG TABLET PO STA (08:12)
[2020-09-21] MEDS ORDERED: CLINDAMYCIN 150 MG CAPSULE PO STA (08:13)
== END 2020-09-21 08:33 | disposition home or self-care (01) ==
LOC: ED 06:44
DX: K08.89 Other specified disorders of teeth and supporting structures (principal); F17.200 Nicotine dependence, unspecified, uncomplicated
CPT/HCPCS: 99282; 99283; A9270

== ENCOUNTER 2021-01-06 08:00 | Outpatient (CLI) | payer MEDICAID ==
[2021-01-06 18:08] LABS: BASOPHILS # (AUTO) 0.1 10^3/uL (0.0-0.1); BASOPHILS % (AUTO) 0.8 %; EOSINOPHILS # (AUTO) 0.3 10^3/uL (0.0-0.7); EOSINOPHILS % (AUTO) 3.2 %; HCT - HEMATOCRIT 48.3 % (42.0-52.0); HGB - HEMOGLOBIN 15.3 g/dL (14.0-18.0); LYMPHOCYTES # (AUTO) 3.2 10^3/uL (1.5-3.5); LYMPHOCYTES % (AUTO) 36.1 %; MEAN CORPUSCULAR HEMOGLOBIN 29.4 pg (27.0-31.0); MEAN CORPUSCULAR HGB CONC 31.7 g/dL (32.0-36.0); MEAN CORPUSCULAR VOLUME 92.9 fL (80.0-94.0); MONOCYTES # (AUTO) 0.9 10^3/uL (0.0-1.0); MONOCYTES % (AUTO) 9.7 %; NEUTROPHILS # (AUTO) 4.4 10^3/uL (1.5-6.6); NEUTROPHILS % (AUTO) 49.4 %; PLT - PLATELET COUNT 333 10^3/uL (130-450); RED CELL DISTRIBUTION WIDTH 13.7 % (12.0-15.0)
[2021-01-06 18:35] LABS: ALBUMIN 4.2 g/dL (3.2-5.5); ALBUMIN/GLOBULIN RATIO 1.4 (1.0-2.2); ALKALINE PHOSPHATASE 52 IU/L (42-121); ALT ALANINE AMINOTRANSFERASE 18 IU/L (10-60); AST ASPARTATE AMINOTRANSFERASE 16 IU/L (10-42); BILIRUBIN,TOTAL 0.7 mg/dL (0.2-1.0); BUN - BLOOD UREA NITROGEN 23 mg/dL (6-20); CALCIUM 8.8 mg/dL (8.5-10.3); CARBON DIOXIDE - CO2 24 mmol/L (21-32); CHLORIDE 102 mmol/L (101-111); CHOL/HDL RATIO 7.3 (<5.0); CHOLESTEROL 312 mg/dL; GFR - MDRD 79 (>89); GLUCOSE 107 mg/dL (70-100); HDL CHOLESTEROL 43 mg/dL; LDL CHOLESTEROL,CALCULATED 203 mg/dL; LDL/HDL RATIO 4.7 (<3.6); SODIUM 136 mmol/L (135-145); TOTAL PROTEIN 7.2 g/dL (6.7-8.2); TRIGLYCERIDES 332 mg/dL; VLDL CHOLESTEROL 66 mg/dL
[2021-01-06 18:43] LABS: THYROID STIMULATING HORMONE 2.39 uIU/mL (0.34-5.60)
[2021-01-06 20:23] LABS: ESTIMATED AVERAGE GLUCOSE 117 mg/dL (70-100); HEMOGLOBIN A1c% 5.7 % (4.27-6.07)
== END 2021-01-06 23:59 | disposition home or self-care (01) ==
LOC: LAB.WCP 08:00
PROVIDERS: ATTEND Family Medicine
DX: G40.909 Epilepsy, unspecified, not intractable, without status epilepticus (principal); R03.0 Elevated blood-pressure reading, without diagnosis of hypertension; Z79.899 Other long term (current) drug therapy
CPT/HCPCS: 36415; 80053; 80061; 83036; 83721; 84443; 85025

== ENCOUNTER 2022-06-08 12:05 | Emergency (ER) | payer MEDICAID ==
--- NOTE | 2022-06-08 14:02 | ED Physician Documentation ---
PD HPI CHEST PAIN - Stated complaint Stated Complaint: CHEST/BACK/ARM PAIN - Chief complaint Chief Complaint: Cardiac - History obtained from History obtained from: Patient - Additional information Additional information: 51-year-old gentleman with history of seizures and tobacco abuse presents with right-sided chest pressure radiating to the back of 3 days duration. It is constant. Nonexertional. Not associated with shortness of breath, fatigue, pedal edema. He moved a washer and dryer the day before and wonders if that might be associated. Review of Systems Ten Systems: 10 systems reviewed and negative Constitutional: denies: Fever, Chills, Fatigue Cardiac: reports: Chest pain / pressure. denies: Palpitations, Pedal edema, Calf pain Respiratory: denies: Dyspnea, Cough PD PAST MEDICAL HISTORY - Past Medical History Cardiovascular: None Respiratory: None Neuro: Seizure disorder Endocrine/Autoimmune: None GI: None : None HEENT: None Psych: Anxiety Musculoskeletal: None Derm: None - Past Surgical History Past Surgical History: No - Present Medications Home Medications: Ambulatory Orders Medication Instructions Recorded Confirmed Colchicine 0.6 mg PO BID #60 tablet 06/08/22 Morphine Ir [Ms Ir] 15 mg PO Q6H PRN #20 tablet 06/08/22 - Allergies Allergies/Adverse Reactions: Allergies Allergy/AdvReac Type Severity Reaction Status Date / Time aspirin Allergy Unknown Verified 06/08/22 13:24 acetaminophen [From Percocet] AdvReac seizure Verified 06/08/22 13:24 hydrocodone AdvReac seizure Verified 06/08/22 13:24 oxycodone HCl * AdvReac seizure Verified 06/08/22 13:24 [From Percocet] - Social History Does the pt smoke?: Yes Smoking Status: Current every day smoker Does the pt drink ETOH?: Yes Does the pt have substance abuse?: No - Immunizations Immunizations are current?: Yes - POLST Patient has POLST: No PD ED PE NORMAL - Vitals Vital signs reviewed: Yes - General General: Alert and oriented X 3, No acute distress - HEENT HEENT: PERRL, EOMI - Neck Neck: Supple, no meningeal sign, No bony TTP - Cardiac Cardiac: RRR, No murmur, Other (Bedside limited echocardiography demonstrates no pericardial effusion.) - Respiratory Respiratory: No respiratory distress, Clear bilaterally - Abdomen Abdomen: Normal bowel sounds, Soft, Non tender - Back Back: No CVA TTP, No spinal TTP - Derm Derm: Normal color, Warm and dry - Extremities Extremities: No edema, No calf tenderness / cord - Neuro Neuro: Alert and oriented X 3, Normal speech Results - Vitals Vitals: Vital Signs - 24 hr 06/08/22 06/08/22 13:20 13:24 Temperature 36.6 C Heart Rate 81 77 Respiratory 16 13 Rate Blood Pressure 114/87 H 130/96 H O2 Saturation 100 100 Oxygen O2 Source Room air - EKG (time done) 1329 Rate: Rate (enter#) (72) Rhythm: NSR [place]: Normal Intervals: Other (lafb) Ischemia: Other (raj cw pericarditis) Computer interpretation: Agree with computer 1346 Rate: Rate (enter#) (71) Rhythm: NSR [place]: Normal Intervals: Other (lafb) QRS: Normal Ischemia: Other (raj cw pericarditis) Computer interpretation: Agree with computer - Labs Labs: Laboratory Tests 06/08/22 06/08/22 06/08/22 14:07 14:07 14:07 WBC 6.4 RBC 5.21 Hgb 15.3 Hct 47.4 MCV 91.0 MCH 29.4 MCHC 32.3 RDW 13.3 Plt Count 312 MPV 9.5 Neut # (Auto) 3.5 Lymph # (Auto) 1.9 [place] # (Auto) 0.7 Eos # (Auto) 0.2 Baso # (Auto) 0.1 Absolute Nucleated RBC 0.00 Nucleated RBC % 0.0 Sodium 139 Potassium 4.4 Chloride 104 Carbon Dioxide 27 Anion Gap 8.0 BUN 13 Creatinine 0.9 Estimated GFR (MDRD) 89 Glucose 94 Calcium 9.3 Total Bilirubin 0.4 AST 16 ALT 15 Alkaline Phosphatase 59 Troponin I High Sens 3.1 Total Protein 6.8 Albumin 4.2 Globulin 2.6 Albumin/Globulin Ratio 1.6 Lipase 36 PD MEDICAL DECISION MAKING - ED course ED course: 51-year-old gentleman with 3 days of constant right-sided chest pain that is nonexertional. Initial EKG done at 1329 demonstrates sinus rhythm with a left anterior fascicular block and diffuse concave ST elevation consistent with pericarditis. This was repeated about 15 minutes later and without any dynamic changes. Bedside ultrasonography does not demonstrate any dynamic changes. We will check cardiac markers, a single set should be enough given the time course. Single view chest x-ray interpreted contemporaneously by me is negative. Biomarkers are negative as are regular labs, this is against ACS and consistent with pericarditis, not myopericarditis. He is discharged with prescriptions for morphine and colchicine, he does not tolerate NSAIDs. Departure - Departure Disposition: 01 Home, Self Care Clinical Impression: Pericarditis Qualifiers: Pericarditis type: idiopathic Chronicity: acute Qualified Code(s): I30.0 - Acute nonspecific idiopathic pericarditis Condition: Good Instructions: ED Chest Pain Pericarditis Prescriptions: Colchicine 0.6 mg PO BID #60 tablet Morphine Ir [Ms Ir] 15 mg PO Q6H PRN #20 tablet PRN Reason: Pain Comments: I sent your prescriptions electronically to [facility] in [place]. You are seen today for chest and back pain that is most consistent with pericarditis based on your EKG. There is no evidence of heart damage or fluid around the heart. The pain can last quite some time, generally we treat with anti-inflammatory such as ibuprofen but since you do not tolerate these well I am prescribing a limited amount of morphine which is what we gave you on your last visit that she tolerated well. I am also prescribing colchicine which is a anti-inflammatory medication not related to ibuprofen which should help and does need to be taken for a few months. Call your doctor to arrange a follow-up appointment, make the next available appointment. In the interim, return anytime if worse or if new symptoms dev elop.
[2022-06-08 14:11] LABS: BASOPHILS # (AUTO) 0.1 10^3/uL (0.0-0.1); BASOPHILS % (AUTO) 0.9 %; EOSINOPHILS # (AUTO) 0.2 10^3/uL (0.0-0.7); EOSINOPHILS % (AUTO) 2.7 %; HCT - HEMATOCRIT 47.4 % (42.0-52.0); HGB - HEMOGLOBIN 15.3 g/dL (14.0-18.0); LYMPHOCYTES # (AUTO) 1.9 10^3/uL (1.5-3.5); LYMPHOCYTES % (AUTO) 30.4 %; MEAN CORPUSCULAR HEMOGLOBIN 29.4 pg (27.0-31.0); MEAN CORPUSCULAR HGB CONC 32.3 g/dL (32.0-36.0); MEAN PLATELET VOLUME 9.5 fL (7.4-11.4); MONOCYTES # (AUTO) 0.7 10^3/uL (0.0-1.0); MONOCYTES % (AUTO) 10.8 %; NEUTROPHILS # (AUTO) 3.5 10^3/uL (1.5-6.6); NEUTROPHILS % (AUTO) 54.9 %; PLT - PLATELET COUNT 312 10^3/uL (130-450); RED BLOOD COUNT 5.21 10^6/uL (4.70-6.10); RED CELL DISTRIBUTION WIDTH 13.3 % (12.0-15.0); WHITE BLOOD COUNT 6.4 x10^3/uL (4.8-10.8)
--- NOTE | 2022-06-08 14:37 | XRAY Report ---
PROCEDURE: Chest 1 View X-Ray INDICATIONS: Chest pain TECHNIQUE: One view of the chest was acquired. COMPARISON: None. FINDINGS: Surgical changes and devices: None. Lungs and pleura: No pleural effusions or pneumothorax. Lungs are clear. Mediastinum: Mediastinal contours appear normal. Heart size is normal. Bones and chest wall: No suspicious bony lesions. Overlying soft tissues appear unremarkable. IMPRESSION: No acute cardiopulmonary disease. Reviewed by: Rosario Boo MD on 06/08/2022 2:36 PM PST Approved by: Rosario Boo MD on 06/08/2022 2:36 PM PST Station ID: [id number]
[2022-06-08 14:40] LABS: ALBUMIN 4.2 g/dL (3.2-5.5); ALBUMIN/GLOBULIN RATIO 1.6 (1.0-2.2); BILIRUBIN,TOTAL 0.4 mg/dL (0.2-1.0); CALCIUM 9.3 mg/dL (8.5-10.3); CREATININE 0.9 mg/dL (0.6-1.2); POTASSIUM 4.4 mmol/L (3.5-5.0); TOTAL PROTEIN 6.8 g/dL (6.7-8.2)
[2022-06-08 15:07] VITALS: BP 128/75
--- NOTE | 2022-06-09 12:57 | ED Physician Documentation ---
ED Addendum - Addendum Addendum: 06/09/22 12:55 The pharmacy at the morphine was originally sent to states that they will not have that medication for 1 week. They state that [facility] in [place] has it. Patient request that it be transferred to [facility] in [place]. It was confirmed with the original pharmacy that they do not have the medication. Departure - Departure Disposition: 01 Home, Self Care Clinical Impression: Pericarditis Qualifiers: Pericarditis type: idiopathic Chronicity: acute Qualified Code(s): I30.0 - Acute nonspecific idiopathic pericarditis Condition: Good Instructions: ED Chest Pain Pericarditis Prescriptions: Colchicine 0.6 mg PO BID #60 tablet Morphine Ir [Ms Ir] 15 mg PO Q6H PRN #20 tablet PRN Reason: pain Comments: I sent your prescriptions electronically to [facility] in [place]. You are seen today for chest and back pain that is most consistent with pericarditis based on your EKG. There is no evidence of heart damage or fluid around the heart. The pain can last quite some time, generally we treat with anti-inflammatory such as ibuprofen but since you do not tolerate these well I am prescribing a limited amount of morphine which is what we gave you on your last visit that she tolerated well. I am also prescribing colchicine which is a anti-inflammatory medication not related to ibuprofen which should help and does need to be taken for a few months. Call your doctor to arrange a follow-up appointment, make the next available appointment. In the interim, return anytime if worse or if new symptoms develop. Discharge Date/Time: 06/08/22 15:07
== END 2022-06-08 15:07 | disposition home or self-care (01) ==
LOC: ED 12:05
DX: I30.0 Acute nonspecific idiopathic pericarditis (principal); I44.4 Left anterior fascicular block; F17.200 Nicotine dependence, unspecified, uncomplicated
CPT/HCPCS: 36415; 80053; 83690; 84484; 85025; 93005; 99283; 99284

== ENCOUNTER 2023-02-15 12:47 | Emergency (ER) | payer MEDICAID ==
[2023-02-15] MEDS ORDERED: AMOX/CLAV 875 MG/125 MG TABLET PO STA (13:21)
--- NOTE | 2023-02-15 13:23 | ED Physician Documentation ---
History of Present Illness - Stated complaint Stated Complaint: TOOTH PX - Chief complaint Chief Complaint: General - History obtained from History obtained from: Patient - Additonal information Additional information: 52-year-old male presents requesting antibiotics for an infected tooth. He was post to have an appointment today for his tooth to be pulled, however his entire family came down with cold-like symptoms and he called the dentist office to cancel his appointment. They referred him to the ER because he told them his face was swelling. He denies any pain. Patient states his last round of antibiotics was 3 weeks ago. Has already scheduled a new appointment with the dentist Review of Systems Constitutional: denies: Fever, Chills Eyes: denies: Loss of vision, Decreased vision Ears: denies: Loss of hearing, Ear pain Throat: reports: Other (facial swelling, bad tooth). denies: Dental pain / toothache, Oral lesions / sores, Sore throat, Swollen tonsils, Swallowed foreign body : denies: Dysuria, Frequency, Hesitancy PD PAST MEDICAL HISTORY - Past Medical History Cardiovascular: None Respiratory: None Neuro: Seizure disorder Endocrine/Autoimmune: None GI: None : None HEENT: None Psych: Anxiety Musculoskeletal: None Derm: None - Past Surgical History Past Surgical History: No - Present Medications Home Medications: Ambulatory Orders Medication Instructions Recorded Confirmed Colchicine 0.6 mg PO BID #60 tablet 06/08/22 Morphine Ir [Ms Ir] 15 mg PO Q6H PRN #20 tablet 06/09/22 Amox/Clav 875/125 [Augmentin] 1 each PO Q12H #20 tablet 02/15/23 - Allergies Allergies/Adverse Reactions: Allergies Allergy/AdvReac Type Severity Reaction Status Date / Time aspirin Allergy Unknown Verified 06/08/22 13:24 acetaminophen [From Percocet] AdvReac seizure Verified 06/08/22 13:24 hydrocodone AdvReac seizure Verified 06/08/22 13:24 oxycodone HCl * AdvReac seizure Verified 06/08/22 13:24 [From Percocet] - Social History Does the pt smoke?: Yes Smoking Status: Current every day smoker Does the pt drink ETOH?: Yes Does the pt have substance abuse?: No - Immunizations Immunizations are current?: Yes - POLST Patient has POLST: No PD ED PE NORMAL - Vitals Vital signs reviewed: Yes - General General: Alert and oriented X 3, No acute distress, Well developed/nourished - HEENT HEENT: Atraumatic, Other (extensive dental caries. No obvious swelling. 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 No trismus. Patient tolerating secretions without difficulty. He has already rescheduled his dentist appointment for his tooth to be pulled. Patient requested his first dose of antibiotics be given here, Augmentin ordered. Additional course of abx sent to pharmacy of choice. Departure - Departure Disposition: Home, Self Care Clinical Impression: Dental infection Condition: Stable Instructions: ED Abscess Dental Prescriptions: Amox/Clav 875/125 [Augmentin] 1 each PO Q12H #20 tablet Forms: PCP List
[2023-02-15 13:39] VITALS: BP 120/82
== END 2023-02-15 13:36 | disposition home or self-care (01) ==
LOC: ED 12:47
DX: K04.7 Periapical abscess without sinus (principal); F17.200 Nicotine dependence, unspecified, uncomplicated
CPT/HCPCS: 99282; 99283; A9270

== ENCOUNTER 2023-05-01 09:22 | Emergency (ER) | payer MEDICAID ==
[2023-05-01 09:39] VITALS: BP 138/102; O2SAT 96
[2023-05-01] MEDS ORDERED: IPRATROPIUM/ALBUTEROL 3 ML NEB INH STA (09:54)
--- NOTE | 2023-05-01 09:59 | XRAY Report ---
PROCEDURE: Chest 1 View X-Ray INDICATIONS: cough TECHNIQUE: One view of the chest was acquired. COMPARISON: 06/08/2022. FINDINGS: Surgical changes and devices: None. Lungs and pleura: No pleural effusions or pneumothorax. Lungs are clear. Mediastinum: Mediastinal contours appear normal. Heart size is normal. Bones and chest wall: No suspicious bony lesions. Overlying soft tissues appear unremarkable. IMPRESSION: No acute cardiopulmonary process. Reviewed by: Kennedy Aguirre MD on 05/01/2023 9:58 AM PDT Approved by: Kennedy Aguirre MD on 05/01/2023 9:58 AM PDT Station ID: [id number]
[2023-05-01 10:28] LABS: RAPID STREP SCREEN Negative (Negative)
--- NOTE | 2023-05-01 10:38 | ED Physician Documentation ---
PD HPI URI - Stated complaint Stated Complaint: SOA - Chief complaint Chief Complaint: Resp - History obtained from History obtained from: Patient - Additional information Additional information: Patient is a 52-year-old male with no significant prior medical history presenting for evaluation of cough and congestion for the past 1 week. Patient states that his cough has been nonproductive but he has had yellow to green nasal drainage. Denies blood. No fevers. Patient does report regularly using cigarettes but has been cutting down over the past few days. He reports feeling short of breath and that he feels like he is not getting a deep breath in. Denies chest pain, abdominal pain, vomiting, leg swelling. Patient has taken a COVID test at home which was negative. Review of Systems Constitutional: denies: Fever Throat: reports: Sore throat Cardiac: denies: Chest pain / pressure Respiratory: reports: Dyspnea, Cough GI: denies: Abdominal Pain, Vomiting Musculoskeletal: denies: Extremity swelling PD PAST MEDICAL HISTORY - Past Medical History Cardiovascular: None Respiratory: None Neuro: Seizure disorder Endocrine/Autoimmune: None GI: None : None HEENT: None Psych: Anxiety Musculoskeletal: None Derm: None - Past Surgical History Past Surgical History: No - Present Medications Home Medications: Ambulatory Orders Medication Instructions Recorded Confirmed Colchicine 0.6 mg PO BID #60 tablet 06/08/22 Morphine Ir [Ms Ir] 15 mg PO Q6H PRN #20 tablet 06/09/22 Amox/Clav 875/125 [Augmentin] 1 each PO Q12H #20 tablet 02/15/23 Albuterol Sulf [Ventolin Hfa 1 - 2 puffs INH Q4HR PRN #1 each 05/01/23 Inhaler] - Allergies Allergies/Adverse Reactions: Allergies Allergy/AdvReac Type Severity Reaction Status Date / Time aspirin Allergy Unknown Verified 05/01/23 09:33 acetaminophen [From Percocet] AdvReac seizure Verified 05/01/23 09:33 hydrocodone AdvReac seizure Verified 05/01/23 09:33 oxycodone HCl * AdvReac seizure Verified 05/01/23 09:33 [From Percocet] - Social History Does the pt smoke?: Yes Smoking Status: Current every day smoker Does the pt drink ETOH?: Yes Does the pt have substance abuse?: No - Immunizations Immunizations are current?: Yes - POLST Patient has POLST: No PD ED PE NORMAL - General General: Alert and oriented X 3, No acute distress, Well developed/nourished - HEENT HEENT: Atraumatic, Moist mucous membranes, Pharynx benign, Other (No sinus tenderness) - Neck Neck: Supple, no meningeal sign - Cardiac Cardiac: RRR, No murmur, Strong equal pulses - Respiratory Respiratory: No respiratory distress, Other (Diminished breath sounds bilaterally but otherwise clear with no wheezing or rhonchi) - Abdomen Abdomen: Soft, Non tender, Non distended - Derm Derm: Warm and dry - Extremities Extremities: No edema, No calf tenderness / cord - Neuro Neuro: Normal speech Results - Vitals Vitals: Vital Signs - 24 hr 05/01/23 05/01/23 09:30 10:20 Temperature 36.4 C L Heart Rate 109 H 100 Respiratory 20 20 Rate Blood Pressure 138/102 H O2 Saturation 96 Oxygen O2 Source Room air - Labs Labs: Laboratory Tests 05/01/23 10:08 Group A Strep Rapid Negative PD Medical Decision Making - ED course Complexity details: reviewed results, re-evaluated patient, d/w patient ED course: Patient is a 52-year-old male presenting for evaluation of cough and congestion For 1 week. Vital signs are stable. Has mildly diminished breath sounds on initial evaluation which significantly improved after albuterol ipratropium treatment. Patient states this feels much better. His chest x-ray which I reviewed is negative for pneumonia. He has taken a COVID test at home which was negative. No tenderness over the sinuses. Strep test is negative. At this time I feel that his symptoms are still likely related to a viral process and antibiotics were not indicated. Discussed continued supportive care as well as concerning symptoms to return for. Departure - Departure Disposition: 01 Home, Self Care Clinical Impression: URI with cough and congestion Condition: Stable Instructions: ED Viral Syndrome Prescriptions: Albuterol Sulf [Ventolin Hfa Inhaler] 1 - 2 puffs INH Q4HR PRN #1 each PRN Reason: Shortness Of Air/Wheezing Comments: Your chest x-ray is clear and I do not see signs of pneumonia. Your strep test is negative. Your symptoms are likely related to a viral process. We did give you a breathing treatment which seemed to help so I am sending a prescription of an albuterol inhaler to [facility]. I would also recommend using a saline nose spray to help clear and loosen the congestion in your nose as this will also help your cough. Please return to the emergency department with any worsening symptoms such as labored breathing.I would recommend follow-up with her primary care provider if your symptoms are not improving over the course of the next week. Forms: PCP List Discharge Date/Time: 05/01/23 10:52
== END 2023-05-01 10:52 | disposition home or self-care (01) ==
LOC: ED 09:22
DX: J06.9 Acute upper respiratory infection, unspecified (principal); F17.200 Nicotine dependence, unspecified, uncomplicated
CPT/HCPCS: 87070; 87077; 87430; 94640; 99284

== ENCOUNTER 2024-01-26 00:51 | Emergency (ER) | payer MEDICAID ==
--- NOTE | 2024-01-26 01:39 | ED Physician Documentation ---
PD HPI BACK PAIN - Stated complaint Stated Complaint: BACK PX - Chief complaint Chief Complaint: Trauma Ch/Bk - History obtained from History obtained from: Patient - Additional information Additional information: HPI from patient. Patient c/o left low back pain radiating down posterior aspect of left thigh. Pain was gradual onset 3 days ago shortly after moving a washing machine. he says he was using a ila and thus surprised he may have hurt his back as a result. The pain has been constant and steadily worsening in intensity. Pain is distinctly worse with movement involving lower back. Denies weakness, numbness, urinary/bowel incontinence. Has taken ibuprofen without relief. Review of Systems Musculoskeletal: reports: Back pain, Pain with weight bearing. denies: Extremity pain, Joint pain, Extremity swelling, Joint swelling Neurologic: denies: Focal weakness, Numbness PD PAST MEDICAL HISTORY - Past Medical History Past Medical History: Yes Cardiovascular: None Respiratory: None Neuro: Seizure disorder Endocrine/Autoimmune: None GI: None : None HEENT: None Psych: Anxiety Musculoskeletal: None Derm: None - Past Surgical History Past Surgical History: No - Present Medications Home Medications: Ambulatory Orders Medication Instructions Recorded Confirmed Cyclobenzaprine [Flexeril] 10 mg PO TID PRN 6 Days #14 tablet 01/26/24 Morphine Ir [Ms Ir] 15 mg PO Q6H PRN #14 tablet 01/26/24 - Allergies Allergies/Adverse Reactions: Allergies Allergy/AdvReac Type Severity Reaction Status Date / Time aspirin Allergy Unknown Verified 01/26/24 01:10 acetaminophen [From Percocet] AdvReac seizure Verified 01/26/24 01:10 hydrocodone AdvReac seizure Verified 01/26/24 01:10 oxycodone HCl * AdvReac seizure Verified 01/26/24 01:10 [From Percocet] - Social History Does the pt smoke?: Yes Smoking Status: Current every day smoker Does the pt drink ETOH?: Yes ETOH Use: Wine Does the pt have substance abuse?: No - Immunizations Immunizations are current?: Yes - POLST Patient has POLST: No PD ED PE NORMAL - Vitals Vital signs reviewed: Yes - General General: Alert and oriented X 3, No acute distress (NAD at rest, obvious painful distress with movement involving lower back, LLE), Well developed/nourished - Back Back: No CVA TTP, No spinal TTP - Extremities Extremities: No edema - Neuro Neuro: No motor deficit (5/5 left dorsi/plantarflexion), No sensory deficit (LTS intact LLE) Results - Vitals Vitals: Oxygen O2 Source Room air PD Medical Decision Making - ED course Complexity details: considered differential, d/w patient ED course: H+P c/w lumbar strain with sciatic component. Patient lists multiple allergies to the extent that he says he can only take morphine IR; he says nearly all other pain medications cause seizures. He is given 10mg cyclobenzaprine and 15mg MS IR, rx for both medications provided. Emergent testing/imaging not indicated at this time. Return precautions reviewed, advised to seek follow up with PCP, next available appointment, for reevaluation Departure - Departure Disposition: 01 Home, Self Care Clinical Impression: Sciatica Condition: Good Instructions: ED Sprain Strain Lumbar, ED Sciatica Prescriptions: Cyclobenzaprine [Flexeril] 10 mg PO TID PRN 6 Days #14 tablet PRN Reason: Spasms Morphine Ir [Ms Ir] 15 mg PO Q6H PRN #14 tablet PRN Reason: Pain >8 Comments: I have electronically submitted prescriptions for cyclobenzaprine (muscle relaxant) and morphine immediate release (narcotic/opiate pain medication) to the [facility] pharmacy in [place]. Contact your primary care provider when the office is next open to arrange for the next available appointment for reevaluation. I am prescribing a short course of narcotic pain medication for you. These are potentially dangerous and addictive medications that should be used carefully. These medications may constipate you. Take an [id number] stool softener (docusate) twice daily with plenty of water while taking these medications. If you go 24 hours without a bowel movement, take [id number] miralax, per package instructions. Do not drink or drive while taking these medications. If you received narcotic or sedating medications while in the emergency department, do not drive for 24 hours. Store this medication in a safe, secure place and out of reach of children. It is a violation of federal law to give or sell this medication to another person or to use in a manner other than prescribed. The ED will not refill narcotic prescriptions, including prescriptions lost or stolen. To dispose of unwanted medications: 1. [facility] at [address] in [place] has a medication drop box. They accept prescription medications (in pill form) Saturday through Saturday 9:00 a.m. to 5:00 p.m. 2. [facility] [employer] accepts prescription medications (in pill form only) for disposal year round. Call for more information. 3. Contact the [facility] for the next [facility] sponsored prescription drug collection event. , [phone], or [phone]; Forms: PCP List Discharge Date/Time: 01/26/24 02:47
[2024-01-26] MEDS: CYCLOBENZAPRINE 10 MG TABLET PO STA (02:37)
[2024-01-26] MEDS: MORPHINE IR 15 MG TABLET PO STA (02:37)
[2024-01-26 02:46] VITALS: BP 142/87; O2SAT 99
== END 2024-01-26 02:47 | disposition home or self-care (01) ==
LOC: ED 00:51
DX: S39.012A Strain of muscle, fascia and tendon of lower back, initial encounter (principal); M54.30 Sciatica, unspecified side; X50.0XXA Overexertion from strenuous movement or load, initial encounter; F17.290 Nicotine dependence, other tobacco product, uncomplicated
CPT/HCPCS: 99283; A9270